=== PATIENT | female | born 1970 | race Two or more races ===

== ENCOUNTER 2018-01-17 22:19 | Emergency (ER) | payer SELFPAY ==
[~2018-01-17] VITALS: Ht 154.9 cm; Wt 65.8 kg
[2018-01-17 22:32] VITALS: BP 123/73
[2018-01-17] MEDS ORDERED: IBUPROFEN600 MG ORAL (23:33)
[2018-01-17 23:45] VITALS: BP 111/65
[2018-01-17 23:46] VITALS: BP 111/65
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
--- NOTE | 2018-01-18 10:18 | Diagnostic Imaging Report ---
Indication: Pain, trauma Technique: 3 views of the nasal bone Comparison: none Findings: There is a comminuted nondisplaced fracture of the nasal bone. The nasal septum is slightly deviated to the right, fracture not completely excludable. Nasal process of the maxilla is intact. The sinuses are clear Impression: Positive for nondisplaced nasal fracture. Cannot rule out associated fracture of the nasal septum This agrees with the interpretation described by the emergency room physician in the electronic medical record
== END 2018-01-17 23:39 | disposition home or self-care (01) ==
LOC: EMR 23:00
DX: S02.2XXA Fracture of nasal bones, initial encounter for closed fracture (principal); S06.9X0A Unspecified intracranial injury without loss of consciousness, initial encounter; W50.0XXA Accidental hit or strike by another person, initial encounter; Y93.9 Activity, unspecified; Y92.9 Unspecified place or not applicable; Y99.9 Unspecified external cause status
CPT/HCPCS: 70160; 99283